=== PATIENT | female | born 1965 | race Caucasian/White ===

== ENCOUNTER 2016-12-11 16:33 | Emergency (ER) | payer OTHER ==
[~2016-12-11] VITALS: Ht 165.1 cm; Wt 70.8 kg
[~2016-12-11 16:33] MED LIST: DAYPRO600 M1 PO; IBU800 M1 PO; MEDROL DOSEPAK4 MG PO; OTEZLA30 MG PO; OXYCODONE AND A1 TA4 PO; PHENERGAN25 MG R; ROBAXIN500 M1 PO; VICODIN 500 MG-1 TAB PO; ZITHROMAX Z PA250 MG PO
[2016-12-11] MEDS ORDERED: CIMZIA200 MG SC (16:45)
[2016-12-11] MEDS ORDERED: RIZATRIPTAN10 M1 PO (16:46)
== END 2016-12-11 18:06 | disposition home or self-care (01) ==
LOC: ED 16:33
DX: M25.511 Pain in right shoulder (principal); M79.601 Pain in right arm; F17.200 Nicotine dependence, unspecified, uncomplicated

== ENCOUNTER 2017-04-28 19:55 | Emergency (ER) | payer OTHER ==
[~2017-04-28] VITALS: Ht 165.1 cm; Wt 68.0 kg
[~2017-04-28 19:55] MED LIST changes: +CIMZIA200 MG SC; +RIZATRIPTAN10 M1 PO
[2017-04-28] MEDS ORDERED: COSENTYX (150 MG/1 M SQ (20:12)
[2017-04-28] MEDS ORDERED: ANAPROX DS550 MG PO (21:32)
== END 2017-04-28 21:36 | disposition home or self-care (01) ==
LOC: ED 19:55
DX: M79.605 Pain in left leg (principal); M25.562 Pain in left knee; F17.200 Nicotine dependence, unspecified, uncomplicated

== ENCOUNTER 2018-11-15 14:45 | Emergency (ER) | payer OTHER ==
[~2018-11-15] VITALS: Ht 165.1 cm; Wt 69.9 kg
[~2018-11-15 14:45] MED LIST changes: +ANAPROX DS550 MG PO; +COSENTYX (150 MG/1 M SQ
== END 2018-11-15 16:23 | disposition home or self-care (01) ==
LOC: ED 14:45
DX: G43.909 Migraine, unspecified, not intractable, without status migrainosus (principal)

== ENCOUNTER 2021-02-06 19:19 | Emergency (ER) | payer OTHER ==
[~2021-02-06] VITALS: Ht 165.1 cm; Wt 65.8 kg
== END 2021-02-06 20:40 | disposition home or self-care (01) ==
LOC: ED 19:19
DX: T78.40XA Allergy, unspecified, initial encounter (principal); Z79.899 Other long term (current) drug therapy; X58.XXXA Exposure to other specified factors, initial encounter

== ENCOUNTER 2021-02-08 19:03 | Emergency (ER) | payer OTHER ==
[~2021-02-08] VITALS: Ht 165.1 cm; Wt 65.8 kg
== END 2021-02-08 20:36 | disposition home or self-care (01) ==
LOC: ED 19:03
DX: T78.49XA Other allergy, initial encounter (principal); Z79.899 Other long term (current) drug therapy; X58.XXXA Exposure to other specified factors, initial encounter